=== PATIENT | female | born 1970 | race Caucasian/White ===

== ENCOUNTER → 2019-03-26 | Outpatient (CLI) | payer BC ==
--- NOTE | 2019-03-27 10:51 | MM ---
Reason for exam: screening (asymptomatic). Last mammogram was performed 3 years and 1 month ago. History: Patient is nulliparous. Taking hormonal contraceptives beginning at age 18. Physical Findings: A clinical breast exam by your physician is recommended on an annual basis and results should be correlated with mammographic findings. MG 3D Screening Mammo W/Cad Bilateral CC and MLO view(s) were taken. Prior study comparison: March 09, 2016, bilateral MG screening mammo w CAD. February 18, 2014, bilateral MG screening mammo w CAD. The breast tissue is heterogeneously dense. This may lower the sensitivity of mammography. No significant changes when compared with prior studies. ASSESSMENT: Negative, BI-RAD 1 RECOMMENDATION: Routine screening mammogram of both breasts in 1 year.
== END | disposition home or self-care (01) ==
LOC: RADMAMWWP 11:12
PROVIDERS: ATTEND Obstetrics & Gynecology
DX: Z12.31 Encounter for screening mammogram for malignant neoplasm of breast (principal)
CPT/HCPCS: 77063; 77067

== ENCOUNTER → 2020-03-30 | Outpatient (CLI) | payer BC ==
[2020-03-30 15:42] LABS: Basophils # (A) 0.1 k/uL (0-0.2); Basophils % (A) 1 %; Eosinophils # (A) 0.1 k/uL (0-0.7); Eosinophils % (A) 1 %; HCT 44.9 % (34.0-46.0); HGB 14.4 gm/dL (11.4-16.0); Lymphocytes # (A) 1.7 k/uL (1.0-4.8); Lymphocytes % (A) 32 %; MCH 30.7 pg (25.0-35.0); Mean Platelet Volume 7.9; Monocytes # (A) 0.3 k/uL (0-1.0); Monocytes % (A) 6 %; Neutrophils # (A) 3.1 k/uL (1.3-7.7); Neutrophils % (A) 57 %; Platelet Count 300 k/uL (150-450); RBC 4.68 m/uL (3.80-5.40); RDW 13.5 % (11.5-15.5); WBC 5.4 k/uL (3.8-10.6)
[2020-03-31 00:04] LABS: African American GFR (CKD) 88.2 (60.0-200.0); Albumin 4.2 g/dL (3.80-4.90); Albumin/Globulin Ratio 1.83 (1.60-3.17); Anion Gap 4.8 mmol/L (4.00-12.00); BUN/Creat Ratio 14.44 Ratio (12.00-20.00); Calcium 9.1 mg/dL (8.7-10.3); Carbon Dioxide 28.2 mmol/L (21.6-31.8); Globulin 2.3 g/dL (1.6-3.3); Non-African American GFR(CKD) 76.1 (60.0-200.0); Potassium 4.4 mmol/L (3.5-5.5); Total Bilirubin 0.3 mg/dL (0.3-1.2); Total Protein 6.5 g/dL (6.2-8.2)
[2020-03-31 01:06] LABS: Hemoglobin A1C 6.3 % (4.0-6.0)
== END | disposition home or self-care (01) ==
LOC: LABWHC1 14:45
PROVIDERS: ATTEND Physician Assistant
DX: R22.31 Localized swelling, mass and lump, right upper limb (principal); F41.9 Anxiety disorder, unspecified; E11.9 Type 2 diabetes mellitus without complications; R53.83 Other fatigue
CPT/HCPCS: 36415; 80053; 83036; 84439; 84443; 84481; 85025

== ENCOUNTER 2020-05-20 08:52 | Observation (INO) | payer BC ==
[2020-05-20] MEDS ORDERED: HYDROmorphone 0.5 MG/0.5 ML SYRINGE IVP STA (09:21)
[2020-05-20] MEDS ORDERED: SODIUM CHLORIDE 0.9% 500 ML 500 ML IV STA (09:21)
[2020-05-20] MEDS ORDERED: SODIUM CHLORIDE 0.9% 1,000 ML IV ONE (09:24)
--- NOTE | 2020-05-20 09:24 | ED ---
General Adult HPI - General Chief complaint: Abdominal Pain Stated complaint: abd pain Time Seen by Provider: 05/20/20 09:06 Source: patient, RN notes reviewed, old records reviewed Mode of arrival: wheelchair Limitations: no limitations - History of Present Illness Initial comments: 49-year-old female patient presents to the chief complaint of 3 days of periumbilical suprapubic abdominal pain diarrhea patient reports that her stools were initially Blake and now they've become reportedly black and loose. Patient reports that she does have a history of appendectomy. Denies any other acute complaints. Systemic: Pt denies fatigue, fever/chills, rash. Pt denies weakness, night sweats, weight loss. Neuro: Pt denies headache, visual disturbances, syncope or pre-syncope. HEENT: Pt denies ocular discharge or irritation, otalgia, rhinorrhea, pharyngitis or notable lymphadenopathy. Cardiopulmonary: Pt denies chest pain, SOB, heart palpitations, dyspnea on exertion. : Pt denies dysuria, burning w/ urination, frequency/urgency. Denies new onset urinary or bowel incontinence. MSK: Pt denies myalgia, loss of strength or function in extremities. Neuro: Pt denies new onset weakness, paresthesias. - Related Data Home Medications Medication Instructions Recorded Confirmed Montelukast [Singulair] 10 mg PO HS 05/20/14 05/20/20 cloNIDine HCL [Catapres] 0.2 mg PO HS 04/09/16 05/20/20 metFORMIN HCL [Glucophage] 500 mg PO HS 04/09/16 05/20/20 Dextroamphetamine/Amphetamine 30 mg PO BID 05/20/20 05/20/20 [Adderall] Diclofenac Sodium [Voltaren] 75 mg PO BID 05/20/20 05/20/20 Ergocalciferol [Vitamin D2] 50,000 unit PO TU 05/20/20 05/20/20 Fexofenadine HCl [Arielle Allergy] 180 mg PO DAILY 05/20/20 05/20/20 Levonorgestrel-Ethin Estradiol 1 tab PO DAILY 05/20/20 05/20/20 [Levora-28 Tablet] SUMAtriptan succinate [Imitrex] 25 mg PO DAILY PRN 05/20/20 05/20/20 clonazePAM [KlonoPIN] 1 - 2 mg PO TID PRN 05/20/20 05/20/20 tiZANidine [Zanaflex] 4 mg PO BID PRN 05/20/20 05/20/20 traZODone HCL 150 - 300 mg PO HS PRN 05/20/20 05/20/20 Allergies Allergy/AdvReac Type Severity Reaction Status Date / Time neomycin [Neomycin] Allergy Severe Rash/Hives Verified 05/20/20 10:14 codeine AdvReac Severe Itching Verified 05/20/20 10:14 hydrocodone AdvReac Intermediate Itching Verified 05/20/20 10:14 morphine AdvReac Intermediate Itching Verified 05/20/20 10:14 Review of Systems ROS Statement: Those systems with pertinent positive or pertinent negative responses have been documented in the HPI. ROS Other: All systems not noted in ROS Statement are negative. Past Medical History Past Medical History: Respiratory Disorder Additional Past Medical History / Comment(s): Yr round severe seasonal allergies. Multiple UTI's, bronchitis History of Any Multi-Drug Resistant Organisms: None Reported Past Surgical History: Appendectomy, Hernia Repair, Orthopedic Surgery Additional Past Surgical History / Comment(s): Rt foot reconstructive surgery 2010. Lt inguinal hernia. Exploratory lap. Corrective Eye surgery bilateral 2006, Past Anesthesia/Blood Transfusion Reactions: Previous Problems w/ Anesthesia, Motion Sickness, Postoperative Nausea & Vomiting (PONV) Additional Past Anesthesia/Blood Transfusion Reaction / Comment(s): Succinylcholine - prolonged muscle paralysis Past Psychological History: Anxiety Smoking Status: Current every day smoker Past Alcohol Use History: Occasional Past Drug Use History: None Reported General Exam - General Exam Comments Initial Comments: Constitutional: NAD, AOX3, Pt has pleasant affect. HEENT: NC/AT, trachea midline, neck supple, no lymphadenopathy. Posterior pharynx non erythematous, without exudates. External ears appear normal, without discharge. Mucous membranes moist. Eyes PERRLA, EOM intact. There is no scleral icterus. No pallor noted. Cardiopulmonary: RRR, no murmurs, rubs or gallops, no JVD noted. Lungs CTAB in anterior and posterior keith. No peripheral edema. Abdominal exam: Abdomen soft and non-distended. Abdomen tender to palpation suprapubic and periumbilical region. Bowel sounds active in LLQ. No hepatosplenomegaly. No ecchymosis Neuro: CN II-XII grossly intact. No nuchal rigidity. MSK: No posterior calf tenderness bilaterally, homans sign negative bilaterally. Posterior tibialis and radial pulse +2 bilaterally. Sensation intact in upper and lower extremities. Full active ROM in upper and lower extremities. Limitations: no limitations Course Vital Signs 05/20/20 05/20/20 08:53 11:22 Temperature 97.7 F Pulse Rate 70 66 Respiratory 16 16 Rate Blood Pressure 119/66 108/67 O2 Sat by Pulse 99 97 Oximetry Procedures - Sepsis Sepsis Focused Exam #1 Time Sepsis Criteria Met: 10:24 Peripheral Pulses: Normal: Radial (R), Radial (L), Posterior Tibialis (R), Posterior Tibialis (L), Dorsalis Pedis (R), Dorsalis Pedis (L) Skin Color: Normal for Patient Respiratory Exam: normal lung sounds Cardiovascular Exam: regular rate, normal rhythm Medical Decision Making - Medical Decision Making 48-year-old female patient with chief evaluation abdominal pain, dark stools, diarrhea. Patient vital signs are stable, afebrile. Skull examined displays mild abdominal tenderness. Laboratory investigations revealed leukocytosis of 18.4. Lactic acid is 5.3. UA reveals nitrite positive urine occult blood positive CT abdomen and pelvis displayed while thickening involving the splenic flexure felt to reflect nonspecific. Moderate fecal stasis. Patient declining any concern for STI's. Patient administered 2 L IV fluids, 1 g Rocephin. Protonix. Patient will be admitted for GI bleed possible urinary tract infection . Case discussed with Dr. Morgan. - Lab Data Result diagrams: 05/20/20 09:05/20/20 09: Lab Results 05/20/20 05/20/20 05/20/20 Range/Units 09: 09: 09: WBC 18.4 H (3.8-10.6) k/uL RBC 5.35 (3.80-5.40) m/uL Hgb 15.8 (11.4-16.0) gm/dL Hct 49.0 H (34.0-46.0) % MCV 91.6 (80.0-100.0) fL MCH 29.5 (25.0-35.0) pg MCHC 32.2 (31.0-37.0) g/dL RDW 13.5 (11.5-15.5) % Plt Count 370 (150-450) k/uL Neutrophils % 80 % Lymphocytes % 13 % Monocytes % 5 % Eosinophils % 1 % Basophils % 0 % Neutrophils # 14.6 H (1.3-7.7) k/uL Lymphocytes # 2.3 (1.0-4.8) k/uL Monocytes # 0.9 (0-1.0) k/uL Eosinophils # 0.2 (0-0.7) k/uL Basophils # 0.1 (0-0.2) k/uL Sodium (137-145) mmol/L Potassium (3.5-5.1) mmol/L Chloride (98-107) mmol/L Carbon Dioxide (22-30) mmol/L Anion Gap mmol/L BUN (7-17) mg/dL Creatinine (0.52-1.04) mg/dL Est GFR (CKD-EPI)AfAm (>60 ml/min/1.73 sqM) Est GFR (CKD-EPI)NonAf (>60 ml/min/1.73 sqM) Glucose (74-99) mg/dL Plasma Lactic Acid Jimmie (0.7-2.0) mmol/L Calcium (8.4-10.2) mg/dL Total Bilirubin (0.2-1.3) mg/dL AST (14-36) U/L ALT (4-34) U/L Alkaline Phosphatase (38-126) U/L Total Protein (6.3-8.2) g/dL Albumin (3.5-5.0) g/dL Lipase (23-300) U/L Urine Color Red Urine Appearance Cloudy H (Clear) Urine pH 5.5 (5.0-8.0) Ur Specific [place] 1.029 (1.001-1.035) Urine Protein Trace H (Negative) Urine Glucose (UA) Negative (Negative) Urine Ketones 1+ H (Negative) Urine Blood Small H (Negative) Urine Nitrite Positive H (Negative) Urine Bilirubin 1+ H (Negative) Urine Urobilinogen 3.0 (<2.0) mg/dL Ur Leukocyte Esterase Small H (Negative) Urine RBC 6 H (0-5) /hpf Urine WBC 1 (0-5) /hpf Ur Squamous Epith Cells 3 (0-4) /hpf Calcium Oxalate Crystal Many H (None) /hpf Urine Bacteria Rare H (None) /hpf Urine Mucus Rare H (None) /hpf Urine HCG, Qual Not Detected (Not Detectd) Stool Occult Blood (Negative) 05/20/20 05/20/20 05/20/20 Range/Units 09:27 09:27 09:44 WBC (3.8-10.6) k/uL RBC (3.80-5.40) m/uL Hgb (11.4-16.0) gm/dL Hct (34.0-46.0) % MCV (80.0-100.0) fL MCH (25.0-35.0) pg MCHC (31.0-37.0) g/dL RDW (11.5-15.5) % Plt Count (150-450) k/uL Neutrophils % % Lymphocytes % % Monocytes % % Eosinophils % % Basophils % % Neutrophils # (1.3-7.7) k/uL Lymphocytes # (1.0-4.8) k/uL Monocytes # (0-1.0) k/uL Eosinophils # (0-0.7) k/uL Basophils # (0-0.2) k/uL Sodium 133 L (137-145) mmol/L Potassium 4.7 (3.5-5.1) mmol/L Chloride 104 (98-107) mmol/L Carbon Dioxide 16 L (22-30) mmol/L Anion Gap 13 mmol/L BUN 21 H (7-17) mg/dL Creatinine 0.98 (0.52-1.04) mg/dL Est GFR (CKD-EPI)AfAm 79 (>60 ml/min/1.73 sqM) Est GFR (CKD-EPI)NonAf 69 (>60 ml/min/1.73 sqM) Glucose 130 H (74-99) mg/dL Plasma Lactic Acid Jimmie 5.3 H* (0.7-2.0) mmol/L Calcium 9.8 (8.4-10.2) mg/dL Total Bilirubin 0.4 (0.2-1.3) mg/dL AST 29 (14-36) U/L ALT 25 (4-34) U/L Alkaline Phosphatase 99 (38-126) U/L Total Protein 7.6 (6.3-8.2) g/dL Albumin 4.5 (3.5-5.0) g/dL Lipase 124 (23-300) U/L Urine Color Urine Appearance (Clear) Urine pH (5.0-8.0) Ur Specific [place] (1.001-1.035) Urine Protein (Negative) Urine Glucose (UA) (Negative) Urine Ketones (Negative) Urine Blood (Negative) Urine Nitrite (Negative) Urine Bilirubin (Negative) Urine Urobilinogen (<2.0) mg/dL Ur Leukocyte Esterase (Negative) Urine RBC (0-5) /hpf Urine WBC (0-5) /hpf Ur Squamous Epith Cells (0-4) /hpf Calcium Oxalate Crystal (None) /hpf Urine Bacteria (None) /hpf Urine Mucus (None) /hpf Urine HCG, Qual (Not Detectd) Stool Occult Blood Positive H (Negative) Disposition Clinical Impression: GI bleed, UTI (urinary tract infection) Disposition: ADMITTED IP TO THIS [facility] Condition: Serious Is patient prescribed a controlled substance at d/c from ED?: No Referrals: Nita Belle MD [Primary Care Provider] - 1-2 days
[2020-05-20 10:01] LABS: Basophils # (A) 0.1 k/uL (0-0.2); Basophils % (A) 0 %; Eosinophils # (A) 0.2 k/uL (0-0.7); Eosinophils % (A) 1 %; HGB 15.8 gm/dL (11.4-16.0); Lymphocytes # (A) 2.3 k/uL (1.0-4.8); Lymphocytes % (A) 13 %; MCH 29.5 pg (25.0-35.0); MCHC 32.2 g/dL (31.0-37.0); MCV 91.6 fL (80.0-100.0); Mean Platelet Volume 7.7; Monocytes # (A) 0.9 k/uL (0-1.0); Monocytes % (A) 5 %; Neutrophils # (A) 14.6 k/uL (1.3-7.7); Neutrophils % (A) 80 %; Platelet Count 370 k/uL (150-450); RBC 5.35 m/uL (3.80-5.40); RDW 13.5 % (11.5-15.5); WBC 18.4 k/uL (3.8-10.6)
[2020-05-20 10:14] LABS: Albumin 4.5 g/dL (3.5-5.0); Calcium 9.8 mg/dL (8.4-10.2); Potassium 4.7 mmol/L (3.5-5.1); Total Bilirubin 0.4 mg/dL (0.2-1.3); Total Protein 7.6 g/dL (6.3-8.2)
[2020-05-20] MEDS ORDERED: SODIUM CHLORIDE 0.9% 500 ML 500 ML IV ONE (10:20)
[2020-05-20 10:22] LABS: Appearance,Urine Cloudy (Clear); Bacteria,Urine Rare /hpf; Bilirubin,Urine 1+ (Negative); Blood,Urine Small (Negative); Calcium Oxalate Crystals,Urine Many /hpf; Color,Urine Red; Glucose,Urine (UA) Negative (Negative); Ketones,Urine 1+ (Negative); Leukocyte Esterase,Urine Small (Negative); Mucus,Urine Rare /hpf; Nitrite,Urine Positive (Negative); PH, Urine 5.5 (5.0-8.0); Protein,Urine Trace (Negative); RBC,Urine 6 /hpf (0-5); Specific Gravity,Urine 1.029 (1.001-1.035); Squamous Epithelial Cell,Urine 3 /hpf (0-4); WBC,Urine 1 /hpf (0-5)
[2020-05-20] MEDS ORDERED: PANTOPRAZOLE 40 MG/10 ML VIAL IVP ONE (10:44)
--- NOTE | 2020-05-20 10:56 | CT ---
EXAMINATION TYPE: CT abdomen pelvis w con DATE OF EXAM: 05/20/2020 COMPARISON: 08/08/2013 HISTORY: Pelvic pain with black stools CT DLP: 639.3 mGycm CONTRAST: CT scan of the abdomen and pelvis is performed without Oral Contrast and with IV Contrast, patient in jected with 100 mL of Isovue 300. FINDINGS: LUNG BASES-: No visible nodule. No infiltrate. LIVER/GB: No calcified gallstones. There is a simple cyst then noted near the dome of the liver dell suring 1.4 cm. Biliary tree is of normal caliber. PANCREAS: No inflammation. No distinct mass. SPLEEN: No splenic enlargement. No lesion seen. ADRENALS: No nodule. No thickening. KIDNEYS/BLADDER: No hydronephrosis. No nephrolithiasis. No distinct renal mass. Urinary bladder g rossly unremarkable. BOWEL: The appendix is surgically absent. There is wall thickening involving the splenic flexure felt to reflect nonspecific. There is moderate fecal stasis. No free air or abscess. GENITAL ORGANS: Hypoattenuating lesions of the uterus are suspicious for underlying leiomyomatous ch yarely. LYMPH NODES: No greater than 1cm abdominal or pelvic lymph nodes are appreciated. AORTA: No significant abnormality. OSSEOUS STRUCTURES: No significant abnormality is seen. OTHER: No significant additional abnormality is seen. IMPRESSION: 1. There is wall thickening involving the splenic flexure felt to reflect nonspecific. There is moder ate fecal stasis.
[2020-05-20] MEDS ORDERED: NALOXONE 0.4 MG/ML 1 ML VIAL IV PRN (11:15)
[2020-05-20] MEDS: SODIUM CHLORIDE 0.9% 1,000 ML IV SCH ×2 (11:52→20:25)
[2020-05-20] MEDS: HYDROmorphone 0.5 MG/0.5 ML SYRINGE IVP PRN ×2 (13:36→20:24)
[2020-05-20] MEDS ORDERED: traZODone HCL 50 MG TAB PO PRN (16:43)
[2020-05-20] MEDS ORDERED: SUMAtriptan succinate 25 MG TAB PO PRN (16:43)
[2020-05-20] MEDS ORDERED: tiZANidine 4 MG TAB PO PRN (16:43)
[2020-05-20] MEDS ORDERED: diphenhydrAMINE 25 MG CAP PO STA (17:56)
[2020-05-20] MEDS ORDERED: metFORMIN 500 MG TAB PO SCH (21:00)
[2020-05-20] MEDS ORDERED: MONTELUKAST 10 MG TAB PO SCH (21:00)
--- NOTE | 2020-05-20 21:49 | P.HPIM ---
History of Present Illness This is a pleasant 49 years old female with multiple medical problems as below. Patient presents because of diarrhea and abdominal pain. Patient problems started last night when she has loose stool with Dr. Blake in color associated with some blood as per patient associated with lower abdominal pain below the umbilicus more on the right side felt like a crampy moderate to severe in characterOn discharge, the patient has been prescribed and patient vomited one time in the middle of night. Patient could not states, he bowel movement she had however she said it was many bouts in 6 hours however they slowed down now. Patient denies chest pain or dyspnea. Also patient denies any dysuria, no increased frequency or urgency. Hemodynamically stable and patient is afebrile. Labs showed leukocytosis of 18.4 K. Mild hyponatremia with sodium 133, rest of CBC and BMP are unremarkable. High lactic acid 5.3 came back to normal at 1.3, liver enzymes and troponin are normal. Urine analysis showing cloudy with WBC and increased leukocyte esterase EKG showing sinus bradycardia at [address]-T changes. CT of the abdomen and pelvis: Showing there is wall thickening involving the splenic flexure felt to reflect nonspecific and there is moderate fecal stasis Occult blood test was positive however hemoglobin is stable at 15. Review of Systems CONSTITUTIONAL: No fever, no malaise, no fatigue. HEENT: No recent visual problems or hearing problems. Denied any sore throat. CARDIOVASCULAR: No orthopnea, PND, no palpitations, no syncope. PULMONARY: No shortness of breath, no cough, no hemoptysis. GASTROINTESTINAL: . Normoactive bowel sounds. NEUROLOGICAL: No headaches, no weakness, no numbness. HEMATOLOGICAL: Denies any bleeding or petechiae. GENITOURINARY: Denies any burning micturition, frequency, or urgency. MUSCULOSKELETAL/RHEUMATOLOGICAL: Denies any joint pain, swelling, or any muscle pain. ENDOCRINE: Denies any polyuria or polydipsia. Past Medical History Past Medical History: Respiratory Disorder Additional Past Medical History / Comment(s): Yr round severe seasonal allergies. Multiple UTI's, bronchitis History of Any Multi-Drug Resistant Organisms: None Reported Past Surgical History: Appendectomy, Hernia Repair, Orthopedic Surgery Additional Past Surgical History / Comment(s): Rt foot reconstructive surgery 2010. Lt inguinal hernia. Exploratory lap. Corrective Eye surgery bilateral 2006, Past Anesthesia/Blood Transfusion Reactions: Previous Problems w/ Anesthesia, Motion Sickness, Postoperative Nausea & Vomiting (PONV) Additional Past Anesthesia/Blood Transfusion Reaction / Comment(s): Succinylcholine - prolonged muscle paralysis Past Psychological History: Anxiety Smoking Status: Current every day smoker Past Alcohol Use History: Occasional Past Drug Use History: None Reported - Past Family History Father Family Medical History: Cancer Mother Family Medical History: Asthma Medications and Allergies Home Medications Medication Instructions Recorded Confirmed Type Montelukast [Singulair] 10 mg PO HS 05/20/14 05/20/20 History cloNIDine HCL [Catapres] 0.2 mg PO HS 04/09/16 05/20/20 History metFORMIN HCL [Glucophage] 500 mg PO HS 04/09/16 05/20/20 History Dextroamphetamine/Amphetamine 30 mg PO BID 05/20/20 05/20/20 History [Adderall] Diclofenac Sodium [Voltaren] 75 mg PO BID 05/20/20 05/20/20 History Ergocalciferol [Vitamin D2] 50,000 unit PO TU 05/20/20 05/20/20 History Fexofenadine HCl [Arielle Allergy] 180 mg PO DAILY 05/20/20 05/20/20 History Levonorgestrel-Ethin Estradiol 1 tab PO DAILY 05/20/20 05/20/20 History [Levora-28 Tablet] SUMAtriptan succinate [Imitrex] 25 mg PO DAILY PRN 05/20/20 05/20/20 History clonazePAM [KlonoPIN] 1 - 2 mg PO TID PRN 05/20/20 05/20/20 History tiZANidine [Zanaflex] 4 mg PO BID PRN 05/20/20 05/20/20 History traZODone HCL 150 - 300 mg PO HS PRN 05/20/20 05/20/20 History Allergies Allergy/AdvReac Type Severity Reaction Status Date / Time neomycin [Neomycin] Allergy Severe Rash/Hives Verified 05/20/20 10:14 codeine AdvReac Severe Itching Verified 05/20/20 10:14 hydrocodone AdvReac Intermediate Itching Verified 05/20/20 10:14 morphine AdvReac Intermediate Itching Verified 05/20/20 10:14 Physical Exam Vitals: Vital Signs Temp Pulse Pulse Resp BP BP Pulse Ox 05/20/20 13:38 67 21 108/78 100 05/20/20 12:57 68 17 100/66 100 05/20/20 12:54 98.4 F 80 20 102/74 98 05/20/20 11:22 66 16 108/67 97 05/20/20 08:53 97.7 F 70 16 119/66 99 Intake and Output 05/20/20 05/20/20 05/20/20 06:59 14:59 22:59 Intake Total 240 240 Output Total 200 Balance 240 40 Intake: Oral 240 240 Output: Urine 200 Other: Weight 66.678 kg GENERAL: The patient is alert and oriented x3, not in any acute distress. Well developed, well nourished. HEENT: Pupils are round and equally reacting to light. EOMI. No scleral icterus. No conjunctival pallor. Normocephalic, atraumatic. No pharyngeal erythema. No thyromegaly. CARDIOVASCULAR: S1 and S2 present. No murmurs, rubs, or gallops. PULMONARY: Chest is clear to auscultation, no wheezing or crackles. -ABDOMEN: Soft, mild periumbilical and upper tenderness, nondistended, normoac tive bowel sounds. No palpable organomegaly. MUSCULOSKELETAL: No joint swelling or deformity. EXTREMITIES: No cyanosis, clubbing, or pedal edema. NEUROLOGICAL: Gross neurological examination did not reveal any focal deficits. SKIN: No rashes. No petechiae Results CBC & Chem 7: 05/20/20 09:27 05/20/20 09:27 Labs: Abnormal Lab Results - Last 24 Hours (Table) 05/20/20 05/20/20 05/20/20 Range/Units 09:27 09: 09:27 WBC 18.4 H (3.8-10.6) k/uL Hct 49.0 H (34.0-46.0) % Neutrophils # 14.6 H (1.3-7.7) k/uL Sodium 133 L (137-145) mmol/L Carbon Dioxide 16 L (22-30) mmol/L BUN 21 H (7-17) mg/dL Glucose 130 H (74-99) mg/dL Plasma Lactic Acid Jimmie (0.7-2.0) mmol/L Urine Appearance Cloudy H (Clear) Urine Protein Trace H (Negative) Urine Ketones 1+ H (Negative) Urine Blood Small H (Negative) Urine Nitrite Positive H (Negative) Urine Bilirubin 1+ H (Negative) Ur Leukocyte Esterase Small H (Negative) Urine RBC 6 H (0-5) /hpf Calcium Oxalate Crystal Many H (None) /hpf Urine Bacteria Rare H (None) /hpf Urine Mucus Rare H (None) /hpf Stool Occult Blood (Negative) 05/20/20 05/20/20 Range/Units 09:27 09:44 WBC (3.8-10.6) k/uL Hct (34.0-46.0) % Neutrophils # (1.3-7.7) k/uL Sodium (137-145) mmol/L Carbon Dioxide (22-30) mmol/L BUN (7-17) mg/dL Glucose (74-99) mg/dL Plasma Lactic Acid Jimmie 5.3 H* (0.7-2.0) mmol/L Urine Appearance (Clear) Urine Protein (Negative) Urine Ketones (Negative) Urine Blood (Negative) Urine Nitrite (Negative) Urine Bilirubin (Negative) Ur Leukocyte Esterase (Negative) Urine RBC (0-5) /hpf Calcium Oxalate Crystal (None) /hpf Urine Bacteria (None) /hpf Urine Mucus (None) /hpf Stool Occult Blood Positive H (Negative) Microbiology - Last 24 Hours (Table) 05/20/20 09:44 Stool Culture - Preliminary Stool Thrombosis Risk Factor Assmnt - Choose All That Apply Each Factor Represents 1 point: Age 41-60 years Thrombosis Risk Factor Assessment Total Risk Factor Score: 1 Thrombosis Risk Factor Assessment Level: Low Risk Assessment and Plan Assessment: Gastroenteritis with possible GI bleed Asymptomatic bacteriuria This is a blind of the right side and she follow up with cup setter lockstitch as an outpatient Plan: This is a pleasant 49 years old female who presents with colitis and gastroenteritis. Sent for stool studies including C. diff, stool culture and leukocyte. Start the patient on ceftriaxone and Flagyl. GI consult. IV hydration. Labs and medication were reviewed.. Continue same treatment. Continue with symptomatic treatment. Resume home medication. Monitor lytes and vitals. DVT and GI prophylaxis. Further recommendations of the clinical course of the patient DVT prophylaxis: Subcutaneous heparin GI Prophylaxis: Pepcid
[2020-05-21] MEDS ORDERED: diphenhydrAMINE 25 MG CAP PO STA (01:10)
[2020-05-21] MEDS: metroNIDAZOLE-NS PMX 500 MG in SALINE 1 100ML.BAG IVPB SCH ×2 (01:17→09:59)
[2020-05-21] MEDS: clonazePAM 1 MG TAB PO PRN ×2 (01:31→08:27)
[2020-05-21 01:45] LABS: Glucose,Whole Blood 71 mg/dL (75-99)
[2020-05-21 01:59] LABS: Glucose,Whole Blood 92 mg/dL (75-99)
[2020-05-21 02:09] LABS: Basophils # (A) 0.1 k/uL (0-0.2); Basophils % (A) 1 %; Eosinophils # (A) 0.2 k/uL (0-0.7); Eosinophils % (A) 2 %; HCT 42.5 % (34.0-46.0); HGB 13.7 gm/dL (11.4-16.0); Lymphocytes # (A) 3.9 k/uL (1.0-4.8); Lymphocytes % (A) 39 %; MCH 29.6 pg (25.0-35.0); MCHC 32.3 g/dL (31.0-37.0); MCV 91.7 fL (80.0-100.0); Mean Platelet Volume 7.7; Monocytes # (A) 0.5 k/uL (0-1.0); Monocytes % (A) 5 %; Neutrophils # (A) 5.1 k/uL (1.3-7.7); Neutrophils % (A) 51 %; Platelet Count 288 k/uL (150-450); RBC 4.63 m/uL (3.80-5.40); RDW 13.7 % (11.5-15.5); WBC 9.9 k/uL (3.8-10.6)
[2020-05-21 02:17] LABS: African American GFR (CKD) >90 (>60 ml/min/1.73 sqM); Anion Gap 9 mmol/L; Blood Urea Nitrogen 12 mg/dL (7-17); Calcium 8.7 mg/dL (8.4-10.2); Carbon Dioxide 16 mmol/L (22-30); Chloride 108 mmol/L (98-107); Glucose 126 mg/dL (74-99); Non-African American GFR(CKD) 83 (>60 ml/min/1.73 sqM); Potassium 4.3 mmol/L (3.5-5.1); Sodium 133 mmol/L (137-145)
[2020-05-21] MEDS: SODIUM CHLORIDE 0.9% 1,000 ML IV SCH (03:33)
[2020-05-21 05:52] LABS: Basophils # (A) 0.1 k/uL (0-0.2); Basophils % (A) 1 %; Eosinophils # (A) 0.1 k/uL (0-0.7); Eosinophils % (A) 2 %; HGB 12.2 gm/dL (11.4-16.0); Lymphocytes # (A) 2.2 k/uL (1.0-4.8); Lymphocytes % (A) 31 %; MCH 29.8 pg (25.0-35.0); MCHC 32.1 g/dL (31.0-37.0); MCV 92.8 fL (80.0-100.0); Mean Platelet Volume 7.7; Monocytes # (A) 0.4 k/uL (0-1.0); Monocytes % (A) 5 %; Neutrophils # (A) 4.2 k/uL (1.3-7.7); Neutrophils % (A) 59 %; Platelet Count 268 k/uL (150-450); RBC 4.09 m/uL (3.80-5.40); RDW 13.8 % (11.5-15.5); WBC 7.2 k/uL (3.8-10.6)
[2020-05-21 06:03] LABS: African American GFR (CKD) >90 (>60 ml/min/1.73 sqM); Anion Gap 5 mmol/L; Blood Urea Nitrogen 11 mg/dL (7-17); Calcium 7.9 mg/dL (8.4-10.2); Carbon Dioxide 22 mmol/L (22-30); Chloride 109 mmol/L (98-107); Glucose 110 mg/dL (74-99); Non-African American GFR(CKD) >90 (>60 ml/min/1.73 sqM); Potassium 3.7 mmol/L (3.5-5.1); Sodium 136 mmol/L (137-145)
[2020-05-21 08:07] VITALS: BP 143/79; PULSE 89; RESP 35; TEMP 98.4
--- NOTE | 2020-05-21 10:54 | P.DS ---
Providers Date of admission: 05/20/20 11:15 Attending physician: Jaxon Macias Consults: 05/20/20 11:15 Consult Physician Stat Consulting Provider: Geoffrey Blount Consult Reason/Comments: gi bleed Do you want consulting provider notified?: Yes Primary care physician: Ysohi Moya [facility] Course: Left AMA Patient Condition at Discharge: Serious Plan - Discharge Summary Discharge Rx Participant: No New Discharge Prescriptions: No Action Montelukast [Singulair] 10 mg PO HS metFORMIN HCL [Glucophage] 500 mg PO HS cloNIDine HCL [Catapres] 0.2 mg PO HS Fexofenadine HCl [Arielle Allergy] 180 mg PO DAILY traZODone HCL 150 - 300 mg PO HS PRN PRN Reason: Insomnia tiZANidine [Zanaflex] 4 mg PO BID PRN PRN Reason: Spasms Ergocalciferol [Vitamin D2] 50,000 unit PO TU Levonorgestrel-Ethin Estradiol [Levora-28 Tablet] 1 tab PO DAILY Diclofenac Sodium [Voltaren] 75 mg PO BID Dextroamphetamine/Amphetamine [Adderall] 30 mg PO BID clonazePAM [KlonoPIN] 1 - 2 mg PO TID PRN PRN Reason: Anxiety SUMAtriptan succinate [Imitrex] 25 mg PO DAILY PRN PRN Reason: Migraine Headache Discharge Medication List Montelukast [Singulair] 10 mg PO HS 05/20/14 [History] cloNIDine HCL [Catapres] 0.2 mg PO HS 04/09/16 [History] metFORMIN HCL [Glucophage] 500 mg PO HS 04/09/16 [History] Dextroamphetamine/Amphetamine [Adderall] 30 mg PO BID 05/20/20 [History] Diclofenac Sodium [Voltaren] 75 mg PO BID 05/20/20 [History] Ergocalciferol [Vitamin D2] 50,000 unit PO TU 05/20/20 [History] Fexofenadine HCl [Arielle Allergy] 180 mg PO DAILY 05/20/20 [History] Levonorgestrel-Ethin Estradiol [Levora-28 Tablet] 1 tab PO DAILY 05/20/20 [History] SUMAtriptan succinate [Imitrex] 25 mg PO DAILY PRN 05/20/20 [History] clonazePAM [KlonoPIN] 1 - 2 mg PO TID PRN 05/20/20 [History] tiZANidine [Zanaflex] 4 mg PO BID PRN 05/20/20 [History] traZODone HCL 150 - 300 mg PO HS PRN 05/20/20 [History] Follow up Appointment(s)/Referral(s): Nita Belle MD [Primary Care Provider] - 1-2 days Discharge Disposition: Left Against Medical Advice
== END 2020-05-21 10:44 | disposition left against medical advice (07) ==
LOC: EC 08:52 → INTOOBSV 11:15 → 3SCARD 11:15 → UNDODISIN 05-21 10:44
PROVIDERS: ADMIT Internal Medicine; ATTEND Internal Medicine
DX: K52.9 Noninfective gastroenteritis and colitis, unspecified (principal); R82.71 Bacteriuria; H54.61 Unqualified visual loss, right eye, normal vision left eye; Z53.29 Procedure and treatment not carried out because of patient's decision for other reasons; E87.1 Hypo-osmolality and hyponatremia; R00.1 Bradycardia, unspecified; J30.2 Other seasonal allergic rhinitis; F41.9 Anxiety disorder, unspecified; F17.200 Nicotine dependence, unspecified, uncomplicated; Z90.49 Acquired absence of other specified parts of digestive tract; Z79.899 Other long term (current) drug therapy; Z79.84 Long term (current) use of oral hypoglycemic drugs; Z79.1 Long term (current) use of non-steroidal anti-inflammatories (NSAID); Z79.3 Long term (current) use of hormonal contraceptives; Z88.1 Allergy status to other antibiotic agents; Z88.5 Allergy status to narcotic agent; Z87.440 Personal history of urinary (tract) infections; Z87.09 Personal history of other diseases of the respiratory system; Z87.19 Personal history of other diseases of the digestive system; Z98.890 Other specified postprocedural states; Z91.89 Other specified personal risk factors, not elsewhere classified; Z87.898 Personal history of other specified conditions; Z80.9 Family history of malignant neoplasm, unspecified; Z82.5 Family history of asthma and other chronic lower respiratory diseases
CPT/HCPCS: 96376 ×2; 96365 ×2; 96367; 96361; 96375; 99285; 36415; 93005; 86900; 86901; 80053; 80048; 83605 ×2; 83690; 85025 ×2; 86850; 82272; 81001; 81025; 87040; 87086; 87045; 83630; 87046; 74177; G0378 ×2; J0696 ×2; C9113; J1170; Q9967

== ENCOUNTER → 2021-03-15 | Outpatient (CLI) | payer OTHER ==
--- NOTE | 2021-03-15 16:28 | US ---
EXAMINATION TYPE: US pelvic complete DATE OF EXAM: 03/15/2021 COMPARISON: NONE CLINICAL HISTORY: R10.2 Pelvic pain, D25.9 Fibroids. Right pelvic pain, irregular cycles, 0, patient on control TECHNIQUE: Transabdominal sonographic images of the pelvis were acquired. Date of LMP: 03/09/2021 EXAM MEASUREMENTS: Uterus: 7.5 x 3.0 x 3.7 cm Endometrial Stripe: 0.4 cm Right Ovary: 2.3 x 1.3 x 1.3 cm Left Ovary: 1.8 x 1.0 x 1.4 cm 1. Uterus: anteverted, 1.7 x 1.3 x 1.6cm hypoechoic area this is suggestive of a fibroid 2. Endometrium: wnl 3. Right Ovary: wnl tiny follicle. 4. Left Ovary: wnl 5. Bilateral Adnexa: wnl 6. Posterior cul-de-sac: wnl IMPRESSION: 1. 1.7 cm hypoechoic region within the right uterus is suggestive of a fibroid. 2. Endometrial stripe measures 4 mm, within normal limits. 3. Tiny follicle of the right ovary.
== END | disposition home or self-care (01) ==
LOC: RADUSWWP 15:39
PROVIDERS: ATTEND Obstetrics & Gynecology
DX: D25.9 Leiomyoma of uterus, unspecified (principal); R10.2 Pelvic and perineal pain; N92.6 Irregular menstruation, unspecified
CPT/HCPCS: 76856

== ENCOUNTER 2021-08-25 15:22 | Inpatient (IN) | payer MEDICAID, OTHER ==
--- NOTE | 2021-08-25 18:10 | ED ---
General Adult HPI - General Chief complaint: Psychiatric Symptoms Stated complaint: Suicidal Time Seen by Provider: 08/25/21 17:31 Source: patient, RN notes reviewed Mode of arrival: ambulatory Limitations: no limitations - History of Present Illness Initial comments: 50-year-old female with a past medical history of anxiety presents to the emergency room for a chief complaint of suicidal thoughts. Patient has had suicidal thoughts for the past 10 years but they are worsening. Patient states that over the past few weeks she has actively wanted to kill herself. She has a plan of jumping in front of a semi-at night so they will see her. She does not want to do anything that will not be successful. Patient states she doesn't know why she is here because she doesn't want to continue living anyway.Patient has no other complaints at this time including shortness of breath, chest pain, abdominal pain, nausea or vomiting, headache, or visual changes. - Related Data Home Medications Medication Instructions Recorded Confirmed Montelukast [Singulair] 10 mg PO HS 05/20/14 08/25/21 cloNIDine HCL [Catapres] 0.2 mg PO HS 04/09/16 08/25/21 Diclofenac Sodium [Voltaren] 75 mg PO BID 05/20/20 08/25/21 Ergocalciferol [Vitamin D2] 50,000 unit PO Q7D 05/20/20 08/25/21 tiZANidine [Zanaflex] 4 mg PO BID PRN 05/20/20 08/25/21 traZODone HCL 300 mg PO HS PRN 05/20/20 08/25/21 Alendronate Sodium [Fosamax] 70 mg PO Q7D 08/25/21 08/25/21 Ammonium Lactate Cream [Lac-Hydrin 1 applic TOPICAL BID PRN 08/25/21 08/25/21 12% Cream] Cetirizine HCl [Zyrtec] 10 mg PO HS 08/25/21 08/25/21 Cyanocobalamin (Vitamin B-12) 1,000 mcg PO DAILY 08/25/21 08/25/21 [Vitamin B-12] Levonorg-Eth Estradiol-Eth 1 tab PO DAILY 08/25/21 08/25/21 0.15-0.03-0.01 Multivitamins, Thera [Multivitamin 1 tab PO DAILY 08/25/21 08/25/21 (formulary)] SUMAtriptan succinate 100 mg PO DAILY PRN 08/25/21 08/25/21 Vilazodone HCl [Viibryd] 40 mg PO DAILY 08/25/21 08/25/21 cloNIDine HCL [Catapres] 0.1 mg PO HS 08/25/21 08/25/21 clonazePAM 0.5 mg PO BID PRN 08/25/21 08/25/21 metFORMIN HCL ER [Glucophage XR] 1,000 mg PO W/SUPPER 08/25/21 08/25/21 Allergies Allergy/AdvReac Type Severity Reaction Status Date / Time neomycin [Neomycin] Allergy Severe Rash/Hives Verified 08/25/21 18:29 codeine AdvReac Severe Itching Verified 08/25/21 18:29 hydrocodone AdvReac Intermediate Itching Verified 08/25/21 18:29 morphine AdvReac Intermediate Itching Verified 08/25/21 18:29 Review of Systems ROS Statement: Those systems with pertinent positive or pertinent negative responses have been documented in the HPI. ROS Other: All systems not noted in ROS Statement are negative. Past Medical History Past Medical History: Respiratory Disorder Additional Past Medical History / Comment(s): Yr round severe seasonal allergies. Multiple UTI's, bronchitis History of Any Multi-Drug Resistant Organisms: None Reported Past Surgical History: Appendectomy, Hernia Repair, Orthopedic Surgery Additional Past Surgical History / Comment(s): Rt foot reconstructive surgery 2010. Lt inguinal hernia. Exploratory lap. Corrective Eye surgery bilateral 2006, Past Anesthesia/Blood Transfusion Reactions: Previous Problems w/ Anesthesia, Motion Sickness, Postoperative Nausea & Vomiting (PONV) Additional Past Anesthesia/Blood Transfusion Reaction / Comment(s): Succinylcholine - prolonged muscle paralysis Past Psychological History: Anxiety Smoking Status: Current every day smoker Past Alcohol Use History: Occasional Past Drug Use History: None Reported - Past Family History Father Family Medical History: Cancer Mother Family Medical History: Asthma General Exam Limitations: no limitations General appearance: alert, anxious Head exam: Present: atraumatic Eye exam: Present: normal appearance, PERRL, EOMI. Absent: scleral icterus, conjunctival injection ENT exam: Present: normal exam, mucous membranes moist Neck exam: Present: normal inspection, full ROM. Absent: tenderness Respiratory exam: Present: normal lung sounds bilaterally. Absent: respiratory distress, wheezes Cardiovascular Exam: Present: regular rate, normal rhythm, normal heart sounds GI/Abdominal exam: Present: soft, normal bowel sounds. Absent: distended, tenderness Psychiatric exam: Present: anxious Course Vital Signs 08/25/21 17:19 Temperature 99.3 F Pulse Rate 101 H Respiratory 16 Rate Blood Pressure 162/107 O2 Sat by Pulse 97 Oximetry Medical Decision Making - Medical Decision Making pt evaluated by EPS, they are recommending inpatient placement. Patient is signing herself in. - Lab Data Lab Results 08/25/21 08/25/21 Range/Units 18:35 20:29 Urine Opiates Screen Not Detected (NotDetected) Ur Oxycodone Screen Not Detected (NotDetected) Urine Methadone Screen Not Detected (NotDetected) Ur Propoxyphene Screen Not Detected (NotDetected) Ur Barbiturates Screen Not Detected (NotDetected) U Tricyclic Antidepress Not Detected (NotDetected) Ur Phencyclidine Scrn Not Detected (NotDetected) Ur Amphetamines Screen Not Detected (NotDetected) U Methamphetamines Scrn Not Detected (NotDetected) U Benzodiazepines Scrn Not Detected (NotDetected) Urine Cocaine Screen Not Detected (NotDetected) U Marijuana (THC) Screen Not Detected (NotDetected) Coronavirus (PCR) Not Detected (Not Detectd) Disposition Clinical Impression: Suicidal ideation Disposition: TRANSFER TO PSYCH HOSP/UNIT Condition: Good Is patient prescribed a controlled substance at d/c from ED?: No Referrals: Nita Belle MD [Primary Care Provider] - 1-2 days Time of Disposition: 21:14
[2021-08-25 19:22] LABS: Amphetamine Screen,Urine Not Detected (NotDetected); Barbiturate Screen,Urine Not Detected (NotDetected); Benzodiazepines Screen,Urine Not Detected (NotDetected); Cocaine Screen,Urine Not Detected (NotDetected); Methadone Screen, Urine Not Detected (NotDetected); Opiate Screen,Urine Not Detected (NotDetected); Oxycodone Screen, Urine Not Detected (NotDetected); Phencyclidine Screen,Urine Not Detected (NotDetected); Tricyclic Antidepressant,Urine Not Detected (NotDetected); Urn Cannabinoid Scrn Not Detected (NotDetected)
[2021-08-25] MEDS ORDERED: MAGNESIUM HYDROXIDE 2,400 MG/10 ML CUP PO PRN (21:59)
[2021-08-25] MEDS ORDERED: ACETAMINOPHEN TAB 325 MG TAB PO PRN (21:59)
[2021-08-25] MEDS ORDERED: MAG HYDROX/AL HYDROX/SIMETH 30 ML CUP PO PRN (21:59)
[2021-08-25] MEDS ORDERED: HALOPERIDOL LACTATE 5 MG/ML 1 ML VIAL IM PRN (22:05)
[2021-08-25] MEDS ORDERED: LORazepam 2 MG/ML INJ IM PRN (22:05)
[2021-08-25] MEDS ORDERED: tiZANidine 4 MG TAB PO PRN (22:06)
[2021-08-25] MEDS ORDERED: SUMAtriptan succinate 50 MG TAB PO PRN (22:06)
[2021-08-25] MEDS ORDERED: NON FORMULARY DRUG (Alendronate Sodium [Fosamax] 70 MG Tablet) PO SCH (22:15)
[2021-08-25] MEDS ORDERED: ERGOCALCIFEROL 1,250 MCG (50,000 IU) CAPSULE PO SCH (22:15)
[2021-08-25] MEDS: LORazepam 1 MG TAB PO PRN (22:35)
[2021-08-26] MEDS: CYANOCOBALAMIN 500 MCG TAB PO SCH (09:10)
[2021-08-26] MEDS: LORazepam 1 MG TAB PO PRN ×2 (09:10→19:55)
[2021-08-26] MEDS: MULTIVITAMINS, THERA 1 EACH TAB PO SCH (09:10)
[2021-08-26] MEDS: NICOTINE 14MG/24HR PATCH TRANSDERM SCH (09:11)
[2021-08-26 10:18] LABS: Basophils # (A) 0.1 k/uL (0-0.2); Basophils % (A) 1 %; Eosinophils % (A) 1 %; HCT 46.9 % (34.0-46.0); HGB 15.2 gm/dL (11.4-16.0); Lymphocytes # (A) 1.3 k/uL (1.0-4.8); Lymphocytes % (A) 21 %; MCH 30.3 pg (25.0-35.0); MCHC 32.3 g/dL (31.0-37.0); MCV 93.7 fL (80.0-100.0); Mean Platelet Volume 7.1; Monocytes # (A) 0.3 k/uL (0-1.0); Monocytes % (A) 4 %; Neutrophils # (A) 4.7 k/uL (1.3-7.7); Neutrophils % (A) 73 %; Platelet Count 338 k/uL (150-450); RDW 13.4 % (11.5-15.5); WBC 6.5 k/uL (3.8-10.6)
[2021-08-26 10:29] LABS: ALT 16 U/L (4-34); AST 22 U/L (14-36); African American GFR (CKD) 73 (>60 ml/min/1.73 sqM); Albumin 4.3 g/dL (3.5-5.0); Alkaline Phosphatase 47 U/L (38-126); Anion Gap 11 mmol/L; Blood Urea Nitrogen 15 mg/dL (7-17); Calcium 9.1 mg/dL (8.4-10.2); Carbon Dioxide 24 mmol/L (22-30); Chloride 103 mmol/L (98-107); Glucose 133 mg/dL (74-99); Non-African American GFR(CKD) 63 (>60 ml/min/1.73 sqM); Potassium 4.2 mmol/L (3.5-5.1); Sodium 138 mmol/L (137-145); Total Bilirubin 0.4 mg/dL (0.2-1.3); Total Protein 7.3 g/dL (6.3-8.2)
[2021-08-26] MEDS ORDERED: DIVALPROEX ER 500 MG TAB.ER.24H PO STA (11:47)
--- NOTE | 2021-08-26 11:51 | P.HP ---
Psychiatric H&P - . H&P Date: 08/26/21 History & Physical: Allergies Allergy/AdvReac Type Severity Reaction Status Date / Time neomycin [Neomycin] Allergy Severe Rash/Hives Verified 08/26/21 03:57 codeine AdvReac Severe Itching Verified 08/26/21 03:57 hydrocodone AdvReac Intermediate Itching Verified 08/26/21 03:57 morphine AdvReac Intermediate Itching Verified 08/26/21 03:57 Vital Signs Temp 97.7 F 08/26/21 09:53 Pulse 120 H 08/26/21 09:53 Resp 16 08/26/21 09:53 BP 125/90 08/26/21 09:53 Pulse Ox 96 08/26/21 09:53 Intake & Output 08/25/21 08/26/21 08/26/21 18:59 06:59 18:59 Weight 58.967 kg 58.967 kg 58.967 kg Laboratory Last Values WBC 6.5 k/uL (3.8-10.6) 08/26/21 09:41 RBC 5.00 m/uL (3.80-5.40) 08/26/21 09:41 Hgb 15.2 gm/dL (11.4-16.0) 08/26/21 09:41 Hct 46.9 % (34.0-46.0) H 08/26/21 09:41 MCV 93.7 fL (80.0-100.0) 08/26/21 09:41 MCH 30.3 pg (25.0-35.0) 08/26/21 09:41 MCHC 32.3 g/dL (31.0-37.0) 08/26/21 09:41 RDW 13.4 % (11.5-15.5) 08/26/21 09:41 Plt Count 338 k/uL (150-450) 08/26/21 09:41 MPV 7.1 08/26/21 09:41 Neutrophils % 73 % 08/26/21 09:41 Lymphocytes % 21 % 08/26/21 09:41 Monocytes % 4 % 08/26/21 09:41 Eosinophils % 1 % 08/26/21 09:41 Basophils % 1 % 08/26/21 09:41 Neutrophils # 4.7 k/uL (1.3-7.7) 08/26/21 09:41 Lymphocytes # 1.3 k/uL (1.0-4.8) 08/26/21 09:41 Monocytes # 0.3 k/uL (0-1.0) 08/26/21 09:41 Eosinophils # 0.0 k/uL (0-0.7) 08/26/21 09:41 Basophils # 0.1 k/uL (0-0.2) 08/26/21 09:41 Sodium 138 mmol/L (137-145) 08/26/21 09:41 Potassium 4.2 mmol/L (3.5-5.1) 08/26/21 09:41 Chloride 103 mmol/L (98-107) 08/26/21 09:41 Carbon Dioxide 24 mmol/L (22-30) 08/26/21 09:41 Anion Gap 11 mmol/L 08/26/21 09:41 BUN 15 mg/dL (7-17) 08/26/21 09:41 Creatinine 1.05 mg/dL (0.52-1.04) H 08/26/21 09:41 Est GFR (CKD-EPI)AfAm 73 (>60 ml/min/1.73 sqM) 08/26/21 09:41 Est GFR (CKD-EPI)NonAf 63 (>60 ml/min/1.73 sqM) 08/26/21 09:41 Glucose 133 mg/dL (74-99) H 08/26/21 09:41 Calcium 9.1 mg/dL (8.4-10.2) 08/26/21 09:41 Total Bilirubin 0.4 mg/dL (0.2-1.3) 08/26/21 09:41 AST 22 U/L (14-36) 08/26/21 09:41 ALT 16 U/L (4-34) 08/26/21 09:41 Alkaline Phosphatase 47 U/L (38-126) 08/26/21 09:41 Total Protein 7.3 g/dL (6.3-8.2) 08/26/21 09:41 Albumin 4.3 g/dL (3.5-5.0) 08/26/21 09:41 TSH 0.653 mIU/L (0.465-4.680) 08/26/21 09:41 Urine Opiates Screen Not Detected (NotDetected) 08/25/21 18:35 Ur Oxycodone Screen Not Detected (NotDetected) 08/25/21 18:35 Urine Methadone Screen Not Detected (NotDetected) 08/25/21 18:35 Ur Propoxyphene Screen Not Detected (NotDetected) 08/25/21 18:35 Ur Barbiturates Screen Not Detected (NotDetected) 08/25/21 18:35 U Tricyclic Antidepress Not Detected (NotDetected) 08/25/21 18:35 Ur Phencyclidine Scrn Not Detected (NotDetected) 08/25/21 18:35 Ur Amphetamines Screen Not Detected (NotDetected) 08/25/21 18:35 U Methamphetamines Scrn Not Detected (NotDetected) 08/25/21 18:35 U Benzodiazepines Scrn Not Detected (NotDetected) 08/25/21 18:35 Urine Cocaine Screen Not Detected (NotDetected) 08/25/21 18:35 U Marijuana (THC) Screen Not Detected (NotDetected) 08/25/21 18:35 Coronavirus (PCR) Not Detected (Not Detectd) 08/25/21 20:29 08/26/21 11:37 Initial evaluation History of present illness Dominga is a 50-year-old female who states that 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 to function anymore She says that her life is not worth anything at this time and that she just wants to She admits that she feels hopeless and helpless and feeling overwhelmed She says that she just sits there and watches TV She states that the last time she worked as a pharmacist was about 2019 She said that she currently lives alone She denies any specific stressors She said that she is also enrolled in hoarding behavior She currently feels that she sees no purpose in life and that she should be She admits that she is also experiencing racing thoughts but denies any auditory or visual hallucinations She said that she used to have issues with alcohol in the past but does not drink anymore and does not use any other drugs Past history personal and social history: The patient remains very vague about her past history and her way of coping life in general She did not give any specifics about any family history of mental illness This is that she currently is not involved in any relationship and has no contact with any of her family members She stated that she was hospitalized in 2002 but did not give any specifics She says that she hasn't used alcohol before but denies going through any treatment program or how she was able to stop it Mental status examination reveals a middle-aged female who comes across as somewhat anxious Patient is casually dressed and groomed Patient also exhibited some laundry hand and leg shaking. She describes as tremors Thought processes are goal-directed sequential Patient denies any auditory visual hallucinations although she does admits to some racing thoughts Self-esteem and confidence alone Patient's problem solving abilities impaired Formal and operational judgment and insight are poor Diagnostic impression: Bipolar disorder mixed type Alcohol use disorder unspecified by history Rule out personality disorder unspecified Plan: The patient is an appropriate candidate for inpatient psychiatric hospitalization and treatment Therapy will focus on providing supportive care and improving her coping abilities and alcohol treatment Patient also participated on the rubio activities Would recommend starting the patient on Depakote ER 500 mg a day and Abilify 5 mg q day to start with and to be titrated to response Patient was brief and the effects and side effects of the medication which she appears to understand well Approximately the stay would be 5-8 days Naresh Pearce M.D. anyone 08/26/21 11:51
[2021-08-26 19:51] LABS: Chol/HDL Ratio 3.26 Ratio; LDL Cholesterol,Calculated 122.8 mg/dL (0.0-131.0)
[2021-08-26] MEDS: cloNIDine HCL 0.1 MG TAB PO SCH (21:32)
[2021-08-26] MEDS: cloNIDine HCL 0.2 MG TAB PO SCH (21:33)
[2021-08-26] MEDS: MONTELUKAST 10 MG TAB PO SCH (21:33)
[2021-08-26] MEDS: LORATADINE 10 MG TAB PO SCH (21:33)
[2021-08-26] MEDS: hydrOXYzine pamoate 25 MG CAP PO PRN (21:34)
--- NOTE | 2021-08-26 23:59 | P.CONS ---
History of Present Illness - History of Present Illness This is a pleasant 50 years old female with past medical history of seasonal allergies, Multiple UTI's, bronchitis, Rt foot reconstructive surgery 2010. Lt inguinal hernia. Corrective Eye surgery bilateral 2006 Patient came to emergency room with signs symptoms of major depression with suicidal ideation and the planned to throw herself in front of car while moving. Patient was admitted to the mental health unit with bipolar disorder . Medical consult has been requested foe medical management. Patient was sitting in bed comfortable no distress. Moving arms and legs fr eely. Denies any specific symptoms. She denies chest pain or dyspnea. No coughing. No abdominal pain. No nausea vomiting. She has 2 bowel movements recently. No headache or weakness or numbness or blurred vision. Patient is able to eat 50-75% of her medial She denies to me smoking, alcohol or illicit drugs. She tells me that her PCP is Dr. Washington. She is hemodynamically stable except for mild tachycardia secondary to stress. Labs including CBC, BMP, liver enzymes are unremarkable. TSH normal at 0.6, hemoglobin A1c is also normal at 5.7%. Lipid profile is within the reference range. Urine drug screen is negative. galicia virus not detected. However after rounding and even the unit in A call from the bedside because the patient approach from the stating that her vision right eye diminished and she has history of retinal detachment. Therefore we placed the patient on neuro check and consulted ophthalmology. Review of Systems Review of systems CONSTITUTIONAL: No fever, no malaise, no fatigue. HEENT: No recent visual problems or hearing problems. Denied any sore throat. CARDIOVASCULAR: No orthopnea, PND, no palpitations, no syncope. PULMONARY: No shortness of breath, no cough, no hemoptysis. GASTROINTESTINAL: No diarrhea, no nausea, no vomiting, no abdominal pain. Normoactive bowel sounds. NEUROLOGICAL: No headaches, no weakness, no numbness. HEMATOLOGICAL: Denies any bleeding or petechiae. GENITOURINARY: Denies any burning micturition, frequency, or urgency. MUSCULOSKELETAL/RHEUMATOLOGICAL: Denies any joint pain, swelling, or any muscle pain. ENDOCRINE: Denies any polyuria or polydipsia. Past Medical History Past Medical History: Respiratory Disorder Additional Past Medical History / Comment(s): Yr round severe seasonal allergies. Multiple UTI's, bronchitis History of Any Multi-Drug Resistant Organisms: None Reported Past Surgical History: Appendectomy, Hernia Repair, Orthopedic Surgery Additional Past Surgical History / Comment(s): Rt foot reconstructive surgery 2010. Lt inguinal hernia. Exploratory lap. Corrective Eye surgery bilateral 2006, Past Anesthesia/Blood Transfusion Reactions: Previous Problems w/ Anesthesia, Motion Sickness, Postoperative Nausea & Vomiting (PONV) Additional Past Anesthesia/Blood Transfusion Reaction / Comm: Succinylcholine - prolonged muscle paralysis Past Psychological History: Anxiety Smoking Status: Former smoker Past Alcohol Use History: Occasional Past Drug Use History: None Reported - Past Family History Father Family Medical History: Cancer Mother Family Medical History: Asthma Medications and Allergies Home Medications Medication Instructions Recorded Confirmed Type Montelukast [Singulair] 10 mg PO HS 05/20/14 08/25/21 History cloNIDine HCL [Catapres] 0.2 mg PO HS 04/09/16 08/25/21 History Diclofenac Sodium [Voltaren] 75 mg PO BID 05/20/20 08/25/21 History Ergocalciferol [Vitamin D2] 50,000 unit PO Q7D 05/20/20 08/25/21 History RX: traZODone HCL 300 mg PO HS PRN 05/20/20 08/25/21 History tiZANidine [Zanaflex] 4 mg PO BID PRN 05/20/20 08/25/21 History Ammonium Lactate Cream [Lac-Hydrin 1 applic TOPICAL BID PRN 08/25/21 08/25/21 History 12% Cream] Cetirizine HCl [Zyrtec] 10 mg PO HS 08/25/21 08/25/21 History Cyanocobalamin (Vitamin B-12) 1,000 mcg PO DAILY 08/25/21 08/25/21 History [Vitamin B-12] Levonorg-Eth Estradiol-Eth 1 tab PO DAILY 08/25/21 08/25/21 History 0.15-0.03-0.01 Multivitamins, Thera [Multivitamin 1 tab PO DAILY 08/25/21 08/25/21 History (formulary)] RX: Alendronate Sodium [Fosamax] 70 mg PO Q7D 08/25/21 08/25/21 History RX: SUMAtriptan succinate 100 mg PO DAILY PRN 08/25/21 08/25/21 History RX: clonazePAM 0.5 mg PO BID PRN 08/25/21 08/25/21 History Vilazodone HCl [Viibryd] 40 mg PO DAILY 08/25/21 08/25/21 History cloNIDine HCL [Catapres] 0.1 mg PO HS 08/25/21 08/25/21 History metFORMIN HCL ER [Glucophage XR] 1,000 mg PO W/SUPPER 08/25/21 08/25/21 History Allergies Allergy/AdvReac Type Severity Reaction Status Date / Time neomycin [Neomycin] Allergy Severe Rash/Hives Verified 08/26/21 03:57 codeine AdvReac Severe Itching Verified 08/26/21 03:57 hydrocodone AdvReac Intermediate Itching Verified 08/26/21 03:57 morphine AdvReac Intermediate Itching Verified 08/26/21 03:57 Physical Exam Vitals: Vital Signs Temp Pulse Pulse Resp BP BP Pulse Ox 08/26/21 09:53 97.7 F 120 H 16 125/90 96 08/25/21 22:09 98.0 F 97 16 131/90 08/25/21 22:00 98.7 F 90 18 148/89 97 08/25/21 20:30 98.2 F 92 18 150/90 99 08/25/21 17:19 99.3 F 101 H 16 162/107 97 Intake and Output 08/25/21 08/26/21 08/26/21 22:59 06:59 14:59 Other: Weight 58.967 kg 58.967 kg GENERAL: The patient is alert and oriented x3, not in any acute distress. Well developed, well nourished. HEENT: Pupils are round and equally reacting to light. EOMI. No scleral icterus. No conjunctival pallor. Normocephalic, atraumatic. No pharyngeal erythema. No thyromegaly. CARDIOVASCULAR: S1 and S2 present. No murmurs, rubs, or gallops. PULMONARY: Chest is clear to auscultation, no wheezing or crackles. ABDOMEN: Soft, nontender, nondistended, normoactive bowel sounds. No palpable organomegaly. MUSCULOSKELETAL: No joint swelling or deformity. EXTREMITIES: No cyanosis, clubbing, or pedal edema. NEUROLOGICAL: Gross neurological examination did not reveal any focal deficits. SKIN: No rashes. no petechiae. Results CBC & Chem 7: 08/26/21 09:41 08/26/21 09:41 Labs: Abnormal Lab Results - Last 24 Hours (Table) 08/26/21 08/26/21 Range/Units 09:41 09:41 Hct 46.9 H (34.0-46.0) % Creatinine 1.05 H (0.52-1.04) mg/dL Glucose 133 H (74-99) mg/dL Assessment and Plan Assessment: -Bipolar and other psych problems with suicidal thoughts, management as per [facility] primary team -Patient complaining of from vision changes on the right side, conversion disorder however we need to rule out organic causes therefore we consulted ophthalmology service also with this patient on neuro check -History of multiple UTI, bronchitis and right foot reconstructive surgery in 2010, follow-up as an outpatient with PCP DVT prophylaxis, not needed for patient is mobile We recommend patient follow up with her PCP in one week after discharge, patient was instructed with same Thank you for consulting us, we will see patient on an as-needed basis. Please feel free to contact us for any further question
[2021-08-27] MEDS: CYANOCOBALAMIN 500 MCG TAB PO SCH (08:47)
[2021-08-27] MEDS: ARIPiprazole 5 MG TAB PO SCH (08:47)
[2021-08-27] MEDS: MULTIVITAMINS, THERA 1 EACH TAB PO SCH (08:47)
[2021-08-27] MEDS: NICOTINE 14MG/24HR PATCH TRANSDERM SCH (08:49)
--- NOTE | 2021-08-27 12:12 | P.PN ---
Subjective Progress Note Date: 08/27/21 Principal diagnosis: Bipolar disorder mixed type Adjustment disorder with mixed emotional features Personality disorder with borderline traits Subjective data: I still worry about my future as to how that is going to change I know I keep worrying about the Depakote causing weight gain but I realize that that should not even be an issue at this time and I need to get better I don't know what they're talking about in the groups but I'm just going along with it My mind still wanders a lot" Objective data: Patient is appropriately dressed and groomed Patient interacts fairly well Thought processes are goal-directed sequential and logical Patient is being more realistic about the effects and side effects and accommodation regarding any side effects issues with the medications if they do occur Patient is now focused on getting better Assessment: Bipolar disorder mixed type Adjustment disorder with mixed emotional features Personality disorder with borderline traits Plan: We'll continue supportive care Patient encourage appropriate participation in on the rubio activities Improve coping skills and assertiveness training as well as built-up other extracurricular activities Sergo Ramses Castellano 08/27/21 Objective - Vital Signs Vital signs: Vital Signs Temp 97.7 F 08/26/21 09:53 Pulse 120 H 08/26/21 09:53 Resp 16 08/26/21 09:53 BP 125/90 08/26/21 09:53 Pulse Ox 96 08/26/21 09:53 Intake & Output 08/26/21 08/27/21 08/27/21 18:59 06:59 18:59 Weight 58.967 kg 60.8 kg - Labs CBC & Chem 7: 08/26/21 09:41 08/26/21 09:41 Labs: Abnormal Lab Results - Last 24 Hours (Table) 08/26/21 Range/Units 09:41 HDL Cholesterol 60.70 H (40.00-60.00) mg/dL
[2021-08-27] MEDS: MONTELUKAST 10 MG TAB PO SCH (20:48)
[2021-08-27] MEDS: cloNIDine HCL 0.1 MG TAB PO SCH (20:48)
[2021-08-27] MEDS: cloNIDine HCL 0.2 MG TAB PO SCH (20:48)
[2021-08-27] MEDS: LORATADINE 10 MG TAB PO SCH (20:49)
[2021-08-28] MEDS: hydrOXYzine pamoate 25 MG CAP PO PRN (02:45)
[2021-08-28 08:17] LABS: Glucose,Whole Blood 125 mg/dL (75-99)
[2021-08-28] MEDS: ARIPiprazole 5 MG TAB PO SCH (08:49)
[2021-08-28] MEDS: CYANOCOBALAMIN 500 MCG TAB PO SCH (08:49)
[2021-08-28] MEDS: MULTIVITAMINS, THERA 1 EACH TAB PO SCH (08:50)
[2021-08-28] MEDS: metFORMIN 500 MG TAB PO SCH ×2 (08:50→17:36)
[2021-08-28] MEDS: NICOTINE 14MG/24HR PATCH TRANSDERM SCH (08:50)
[2021-08-28] MEDS ORDERED: diphenhydrAMINE 25 MG CAP PO PRN (13:43)
[2021-08-28] MEDS ORDERED: AMMONIUM LACTATE 12% CREAM 140 GM TUBE TOPICAL PRN (13:44)
[2021-08-28] MEDS: SERTRALINE 50 MG TAB PO SCH (14:00)
--- NOTE | 2021-08-28 14:27 | P.PN ---
Progress Note - Text Progress Note Date: 08/28/21 Interval History: Patient was seen wandering the hallways and was directable and agreeable to jessica paredes with magazine writer in the office. Patient claims that she has been dealing with depression and severe anxiety while at home. 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 She states that she has not been able to work and has been accumulating debt and not being able to pay for her house. She states that she is feeling very overwhelmed prior to coming in the hospital and was having suicidal thoughts. She claims that she is still feeling depressed and anxious and claims that she's been sleeping poorly at nighttime. She claims that she has been hoarding tissue paper at home. She claims that she has been mainly isolating on the unit. At this time patient denies any suicidal or homical ideations, intent or plan. Patient denies any auditory, visual hallucinations and denies any paranoia or delusions. Patient denies any side effects from the medications and has been compliant with meds. Mental Status Exam: General Appearance: Patient appears to be thin, stated age is alert, directable, and attempts to be cooperative. Appears to be anxious Behavior: Patient is calmly seated without any agitated behavior. Timid Speech: Patient's speech is fluent and nonpressured. [place] Mood/Affect: Mood is depressed and anxious, affect is congruent Suicidality/Homicidality: Patient denies having any suicidal or homicidal ideation intent or plan. Perceptions: Patient denies any visual hallucinations and denies any auditory hallucinations Though content/process: There is no evidence of any delusional thought content and thought process is linear and goal-directed. Focused on her anxiety and depression. Memory and concentration: AOX3, grossly intact for the purposes of this session Judgment and insight: Poor Improving mildly Assessment Major depressive disorder, recurrent, severe without psychotic features Generalized anxiety disorder Hoarding disorder Plan: -Patient continues to meet criteria for inpatient psychiatric admission for symptom stabilization and safety. Patient has signed adult voluntary form and medication consent and was placed in patient's chart. -Medications: Zoloft 50 mg daily for mood/anxiety, Remeron 15 mg daily at bedtime for insomnia/mood/appetite. Vistaril when necessary for anxiety. Benadryl when necessary for insomnia -When necessary Ativan and Haldol for agitation/aggression. -NRT - not needed as patient does not smoke -SW on board for discharge planning. Encouraged the patient to participate in milieu.
[2021-08-28] MEDS ORDERED: MIRTAZAPINE 15 MG TAB PO SCH (21:00)
[2021-08-28] MEDS: LORATADINE 10 MG TAB PO SCH (21:29)
[2021-08-28] MEDS: MONTELUKAST 10 MG TAB PO SCH (21:29)
[2021-08-28] MEDS: cloNIDine HCL 0.1 MG TAB PO SCH (21:29)
[2021-08-28] MEDS: cloNIDine HCL 0.2 MG TAB PO SCH (21:29)
[2021-08-29 01:24] LABS: Glucose,Whole Blood 127 mg/dL (75-99)
--- NOTE | 2021-08-29 01:58 | P.EN ---
A- team: Indication: Near syncope Arrived on Scene to find: The patient laying in stretcher. The case was discussed with the RN. The patient states that she had come to the medication window to obtain a PRN benadryl to help her sleep when she began feeling lightheaded. She proceeded to sit down on the floor and continued feeling lightheaded along with mild chest discomfort, dry mouth, and tingling of her fingers. Patient reports that her symptoms resolved within a few minutes of her laying down on the stretcher. At time of interview, the patient reported feeling essentially back to her baseline. She reports a history of such episodes, last one occurring a few months ago, and notes that the was never worked up for it. Upon initial complaint of dizziness, the patient's BP was 7/70 with pulse of 95. Upon sitting on the floor next to the medication window, repeat vitals revealed a BP of 90/61 with pulse of 54. Subsequently orthostatic vital signs were obtained once patient was in the stretcher with supine vitals 121/80, pulse 61, and seated 99/74 with pulse of 72, with standing 99/72 with pulse of 76. The patient reported that she has not been drinking enough water and she feels very dehydrated and asked for water at the time of interview. The patient's medications were reviewed and she stated no new medications tonight except for Remeron. Vital signs reviewed Patient seen and examined at bedside. General: [non toxic], [no distress], [appears at stated age] Derm: [warm], [dry] Head: [atraumatic], [normocephalic], [symmetric] Eyes: [EOMI], [no lid lag], [anicteric sclera] Mouth: [no lip lesion], [mucus membranes dry Cardiovascular: [S1S2 reg], [no murmur], [positive posterior tibial pulse bilateral], Lungs: [CTA bilateral], [no rhonchi, no rales] , [no accessory muscle use] Abdominal: [soft], [ nontender to palpation], [no guarding], [no appreciable organomegaly] Ext: [no gross muscle atrophy], [no edema], [no contractures] Neuro: [ CN II-XI grossly intact], [no focal neuro deficits] Psych: [Alert], [oriented], [appropriate affect] Assessment: Near syncope, possibly orthostatic and vasovagal with drop of pulse during the initial symptom onset with subsequent drop in blood pressure on orthostatic vitals Plan: 2 L of normal saline IV bolus were recommended Fall precautions Advised patient to be very careful when standing up from a seated position or standing for prolonged periods of time Disposition: Continue with mental health unit for now A Total of 35 minutes of critical care time was spent on the complex care of this patient.
[2021-08-29 07:50] LABS: Glucose,Whole Blood 118 mg/dL (75-99)
[2021-08-29] MEDS: SERTRALINE 50 MG TAB PO SCH (08:27)
[2021-08-29] MEDS: MULTIVITAMINS, THERA 1 EACH TAB PO SCH (08:27)
[2021-08-29] MEDS: metFORMIN 500 MG TAB PO SCH ×2 (08:28→17:11)
[2021-08-29] MEDS: CYANOCOBALAMIN 500 MCG TAB PO SCH (08:28)
[2021-08-29] MEDS ORDERED: LEVONORGESTREL PO SCH (09:00)
[2021-08-29] MEDS ORDERED: [UNRECOGNIZED DRUG - OTHER] PO SCH (09:00)
[2021-08-29] MEDS ORDERED: ETHINYL ESTRADIOL PO SCH (09:00)
--- NOTE | 2021-08-29 09:55 | P.PN ---
Progress Note - Text Progress Note Date: 08/29/21 Interval History: Patient was seen wandering the hallways and was directable and agreeable to jessica paredes with commercial loan underwriter in the office. She claims that group was canceled today. 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 She asked several questions about her medications and spoke more about her medication history. She states that she was put on Anafranil in the past for trichotillomania. She states that she did not sleep well last night and was hypotensive due to the clonidine. She claims that she only slept "a few" hours however claims that she is still feeling very anxious at night and was worried about her nightmares. At this time patient denies any suicidal or homical ideations, intent or plan. Patient denies any auditory, visual hallucinations and denies any paranoia or delusions. Patient denies any side effects from the medications and has been compliant with meds. Mental Status Exam: General Appearance: Patient appears to be thin, stated age is alert, directable, and attempts to be cooperative. Appears to be anxious Behavior: Patient is calmly seated without any agitated behavior. Timid Speech: Patient's speech is fluent and nonpressured. [place] Mood/Affect: Mood is depressed and anxious, affect is congruent Suicidality/Homicidality: Patient denies having any suicidal or homicidal ideation intent or plan. Perceptions: Patient denies any visual hallucinations and denies any auditory hallucinations Though content/process: There is no evidence of any delusional thought content and thought process is linear and goal-directed. Focused on her anxiety and depression. Memory and concentration: AOX3, grossly intact for the purposes of this session Judgment and insight: Poor Improving mildly Assessment Major depressive disorder, recurrent, severe without psychotic features Generalized anxiety disorder Hoarding disorder Plan: -Patient continues to meet criteria for inpatient psychiatric admission for symptom stabilization and safety. Patient has signed adult voluntary form and medication consent and was placed in patient's chart. -Medications: increase Zoloft 100 mg daily for mood/anxiety, increase Remeron 30 mg daily at bedtime for insomnia/mood/appetite. Vistaril when necessary for anxiety. Benadryl when necessary for insomnia. consider adding zyprexa vs. seroquel if patient sleep and anxiety are still fairly poor at night. -When necessary Ativan and Haldol for agitation/aggression. -NRT - not needed as patient does not smoke -SW on board for discharge planning. Encouraged the patient to participate in milieu.
[2021-08-29 12:50] LABS: Glucose,Whole Blood 101 mg/dL (75-99)
[2021-08-29 13:33] VITALS: BMI 20.3
[2021-08-29] MEDS: LEVONORGESTREL PO SCH (17:10)
[2021-08-29] MEDS: [UNRECOGNIZED DRUG - OTHER] PO SCH (17:10)
[2021-08-29] MEDS: ETHINYL ESTRADIOL PO SCH (17:10)
[2021-08-29] MEDS: MONTELUKAST 10 MG TAB PO SCH (20:34)
[2021-08-29] MEDS: cloNIDine HCL 0.1 MG TAB PO SCH (20:34)
[2021-08-29] MEDS: LORATADINE 10 MG TAB PO SCH (20:35)
[2021-08-29] MEDS ORDERED: MIRTAZAPINE 15 MG TAB PO SCH (21:00)
[2021-08-29] MEDS: valACYclovir 500 MG TAB PO SCH (22:21)
[2021-08-30] MEDS: LORazepam 1 MG TAB PO PRN (01:25)
[2021-08-30 01:27] VITALS: RESP 16
[2021-08-30] MEDS: MULTIVITAMINS, THERA 1 EACH TAB PO SCH (08:46)
[2021-08-30] MEDS: SERTRALINE 100 MG TAB PO SCH (08:46)
[2021-08-30] MEDS: ETHINYL ESTRADIOL PO SCH (08:46)
[2021-08-30] MEDS: LEVONORGESTREL PO SCH (08:46)
[2021-08-30] MEDS: [UNRECOGNIZED DRUG - OTHER] PO SCH (08:46)
[2021-08-30] MEDS: metFORMIN 500 MG TAB PO SCH ×2 (08:46→18:41)
[2021-08-30] MEDS: CYANOCOBALAMIN 500 MCG TAB PO SCH (08:46)
[2021-08-30] MEDS: valACYclovir 500 MG TAB PO SCH ×2 (08:47→20:53)
[2021-08-30] MEDS ORDERED: OLANZapine 5 MG TAB PO ONE (12:45)
[2021-08-30 13:32] VITALS: BP 134/101; PULSE 121; TEMP 97.9
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
[2021-08-30] MEDS: OLANZapine 5 MG TAB PO SCH ×2 (17:18→20:52)
[2021-08-30] MEDS: cloNIDine HCL 0.1 MG TAB PO SCH (20:51)
[2021-08-30] MEDS: MONTELUKAST 10 MG TAB PO SCH (20:51)
[2021-08-30] MEDS: LORATADINE 10 MG TAB PO SCH (20:52)
[2021-08-30] MEDS ORDERED: MIRTAZAPINE 15 MG TAB PO SCH (21:00)
[2021-08-30] MEDS ORDERED: IMIPRAMINE 10 MG TAB PO SCH (21:00)
[2021-08-31 07:56] LABS: Glucose,Whole Blood 99 mg/dL (75-99)
[2021-08-31] MEDS: ETHINYL ESTRADIOL PO SCH (08:27)
[2021-08-31] MEDS: valACYclovir 500 MG TAB PO SCH (08:27)
[2021-08-31] MEDS: [UNRECOGNIZED DRUG - OTHER] PO SCH (08:27)
[2021-08-31] MEDS: LEVONORGESTREL PO SCH (08:27)
[2021-08-31] MEDS: MULTIVITAMINS, THERA 1 EACH TAB PO SCH (08:27)
[2021-08-31] MEDS: SERTRALINE 100 MG TAB PO SCH (08:28)
[2021-08-31] MEDS: OLANZapine 5 MG TAB PO SCH (08:28)
[2021-08-31] MEDS: metFORMIN 500 MG TAB PO SCH (08:28)
[2021-08-31] MEDS: CYANOCOBALAMIN 500 MCG TAB PO SCH (08:28)
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
== END 2021-08-31 14:58 | disposition home or self-care (01) | DRG 885 ==
LOC: EC 15:22 → 3MHU 21:38
PROVIDERS: ADMIT Psychiatry & Neurology Psychiatry; ATTEND Psychiatry & Neurology Psychiatry
DX: F31.4 Bipolar disorder, current episode depressed, severe, without psychotic features (principal); R45.851 Suicidal ideations; F13.239 Sedative, hypnotic or anxiolytic dependence with withdrawal, unspecified; I95.9 Hypotension, unspecified; F60.3 Borderline personality disorder; Z20.822 Contact with and (suspected) exposure to COVID-19; F10.10 Alcohol abuse, uncomplicated; F43.23 Adjustment disorder with mixed anxiety and depressed mood; F41.1 Generalized anxiety disorder; F42.3 Hoarding disorder; F63.3 Trichotillomania; F44.9 Dissociative and conversion disorder, unspecified; R73.03 Prediabetes; J30.2 Other seasonal allergic rhinitis; Z79.83 Long term (current) use of bisphosphonates; Z79.84 Long term (current) use of oral hypoglycemic drugs; Z79.899 Other long term (current) drug therapy; Z87.891 Personal history of nicotine dependence; Z87.440 Personal history of urinary (tract) infections; Z90.49 Acquired absence of other specified parts of digestive tract; Z87.19 Personal history of other diseases of the digestive system; Z86.69 Personal history of other diseases of the nervous system and sense organs; Z87.39 Personal history of other diseases of the musculoskeletal system and connective tissue; Z98.890 Other specified postprocedural states; Z88.3 Allergy status to other anti-infective agents; Z71.89 Other specified counseling; Z88.5 Allergy status to narcotic agent; Z82.5 Family history of asthma and other chronic lower respiratory diseases; Z80.9 Family history of malignant neoplasm, unspecified
CPT/HCPCS: 80053; 80061; 80306; 82075; 83036; 84443; 85025; 87635; 99285

== ENCOUNTER → 2022-09-18 | Outpatient (CLI) | payer OTHER ==
--- NOTE | 2022-09-19 10:55 | MM ---
Reason for Exam: Screening (asymptomatic). Last mammogram was performed 3 year(s) and 6 month(s) ago. Patient History: Menarche at age 14. Patient has no children. Hormonal Contraceptives, from age 18 until age 50. Risk Values: Naomie 5 year model risk: 1.0%. NCI Lifetime model risk: 10.0%. Prior Study Comparison: 02/18/2014 Bilateral Screening Mammogram, [facility]. 03/09/2016 Bilateral Screening Mammogram, [facility]. 03/26/2019 Bilateral Screening Mammogram, [facility]. Tissue Density: The breast tissue is heterogeneously dense. This may lower the sensitivity of mammography. Findings: Analyzed By CAD. Pattern appears symmetrical and stable. No significant interval change. No suspicious groups of microcalcifications, spiculated or lobular masses, architectural distortion or other secondary signs of malignancy are mammographically apparent. Overall Assessment: Benign, BI-RAD 2 Management: Screening Mammogram of both breasts in 1 year. A negative mammogram report should not preclude additional follow up of suspicious palpable abnormalities. Patient should continue monthly self breast exam. A clinical breast exam by your physician is recommended on an annual basis and results should be correlated with mammographic findings. Electronically signed and approved by: Jonh Munroe D.O. Radiologis
== END | disposition home or self-care (01) ==
LOC: RADMAMWWP 15:32
PROVIDERS: ATTEND Family Medicine
DX: Z12.31 Encounter for screening mammogram for malignant neoplasm of breast (principal)
CPT/HCPCS: 77063; 77067

== ENCOUNTER 2022-11-20 09:03 | Day surgery (SDC) | payer OTHER ==
[2022-11-15 08:47] VITALS: BMI 24.9
[~2022-11-20 09:03] MED LIST: LACTATED RINGERS 1,000 ML IV SCH; LIDOCAINE 1% (10MG/ML) FOR IV START INTRADERMA PRN
[2022-11-20 09:28] VITALS: RESP 16; TEMP 97.8
[2022-11-20] MEDS ORDERED: PROPOFOL 10 MG/ML 20 ML VIAL IV ONE (10:20)
--- NOTE | 2022-11-20 10:38 | P.PCN ---
Date of Procedure: 11/20/22 Procedure(s) Performed: BRIEF HISTORY: Patient is a 51-year-old pleasant white female scheduled for an elective colonoscopy as a part of screening for colon cancer. PROCEDURE PERFORMED: Colonoscopy. PREOPERATIVE DIAGNOSIS: Screening for colon cancer. IV sedation per Anesthesia. PROCEDURE: After informed consent was obtained, the patient, was brought into the endoscopy unit. IV sedation was administered by Anesthesia under continuous monitoring. Digital rectal examination was normal. Initially the Olympus CF-160 flexible video colonoscope was then inserted in the rectum, gradually advanced into the cecum without any difficulty. Careful examination was performed as the scope was gradually being withdrawn. Ileocecal valve and the appendiceal orifice were visualized and appeared normal. Prep was excellent. Mucosa of the cecum, ascending colon, transverse colon, descending colon, sigmoid colon, and rectum appeared normal. Retroflexion was performed in the rectum and no lesions were seen. The patient tolerated the procedure well. IMPRESSION: Normal-appearing colon from rectum to cecum with no evidence of colorectal neoplasia. RECOMMENDATIONS: Findings of this examination were discussed with the patient as well as her family. She was advised to have a repeat screening colonoscopy in 10 years..
[2022-11-20 10:59] VITALS: BP 119/90; PULSE 72
== END 2022-11-20 11:12 | disposition home or self-care (01) ==
LOC: ORWHC2ENDO 09:03
PROVIDERS: ATTEND Internal Medicine Gastroenterology
DX: Z12.11 Encounter for screening for malignant neoplasm of colon (principal); K58.9 Irritable bowel syndrome, unspecified; Z88.8 Allergy status to other drugs, medicaments and biological substances
CPT/HCPCS: 45378; J2704

== ENCOUNTER → 2023-12-17 | Outpatient (CLI) | payer OTHER ==
--- NOTE | 2023-12-17 18:54 | US ---
EXAMINATION TYPE: US abdomen complete DATE OF EXAM: 12/17/2023 COMPARISON: 04/15/2014, CT 05/20/2020. CLINICAL INDICATION: Female, 52 years old with history of R10.9 UNSPECIFIED ABDOMINAL PAIN; Right fla nk pain x 3 months, exploratory laparoscopy, appy, and left ingunal hernia surgery TECHNIQUE: Multiple sonographic images of the abdomen are obtained. FINDINGS: EXAM MEASUREMENTS: Liver Length: 10.6 cm Gallbladder Wall: 0.1 cm CBD: 0.3 cm Spleen: 9.7 cm Right Kidney: 10.6 x 3.7 x 5.4 cm Left Kidney: 9.2 x 5.4 x 3.9 cm FLIGHT CONTROL TOWER OPERATOR NOTES: Pancreas: wnl Liver: Hyperechoic area supoerolateral right liver = 2.2 x 2.3 x 2.1 cm Gallbladder: wnl Evidence for sonographic Rivera's sign: No CBD: wnl Spleen: wnl Right Kidney: wnl Left Kidney: wnl Upper IVC: wnl Abd Aorta: wnl The liver is homogenous with hyperechoic lesion as described above.. The intrahepatic portion of the IVC and proximal abdominal aorta are within normal limits. There is no evidence of cholelithiasis. Common bile duct is unremarkable. The visualized portions of the pancreas are homogenous. The sple en is unremarkable. Kidneys are symmetric and free of hydronephrosis. No renal lesions are seen. IMPRESSION: 1. No evidence for acute process. 2. Hyperechoic lesion in the right liver measuring up to 2.3 cm most suggestive of a hepatic hemangi miguel. This can be confirmed with MRI liver mass protocol.
--- NOTE | 2023-12-17 19:15 | US ---
EXAMINATION TYPE: US pelvic complete DATE OF EXAM: 12/17/2023 COMPARISON: 03/15/2021 CLINICAL INDICATION: Female, 52 years old with history of R10.9 ABD PAIN; On estrogen patch and oral progesterone, multiple precancerous pap smear, on control x 30 years, G0 TECHNIQUE: . Transabdominal sonographic images of the pelvis were acquired. Transvaginal sonographi c images were medically necessary to better assess the following anatomy: ovaries Date of LMP: about 2 years ago EXAM MEASUREMENTS: Uterus: 6.4 x 3.8 x 3.7 cm Endometrial Stripe: 0.3 cm Right Ovary: obscured by bowel cm Left Ovary: obscured by bowel cm 1. Uterus: Anteverted wnl 2. Endometrium: wnl 3. Right Ovary: Obscured by overlying bowel gas 4. Left Ovary: Obscured by overlying bowel gas 5. Bilateral Adnexa: Obscured by overlying bowel gas 6. Posterior cul-de-sac: wnl IMPRESSION: 1. No evidence for acute process. 2. Endometrium within normal limits for thickness. 3. Nonvisualization of the ovaries due to bowel gas.
== END | disposition home or self-care (01) ==
LOC: RADUSWWP 14:55
PROVIDERS: ATTEND Family Medicine
DX: K76.89 Other specified diseases of liver (principal); R10.9 Unspecified abdominal pain; Z98.890 Other specified postprocedural states
CPT/HCPCS: 76700; 76830; 76856

== ENCOUNTER → 2024-02-04 | Outpatient (CLI) | payer OTHER ==
--- NOTE | 2024-02-08 10:18 | MR ---
EXAMINATION TYPE: MR liver wo/w con DATE OF EXAM: 02/04/2024 10:19 PM CLINICAL INDICATION:Female, 53 years old with history of K76.9 LIVER DISEASE, UNSPECIFIED; PHH, Liver disease COMPARISON: CT scan abdomen from 05/20/2020., Ultrasound 12/17/2023 TECHNIQUE: Multiplanar multi-sequence imaging was performed without contrast. Post contrast imaging was performed. Post IV contrast subtraction images were also submitted for review. IV Contrast: 7 cc Gadavist FINDINGS: LOWER CHEST: No gross irregularity. ABDOMEN Liver: No evidence for hepatic steatosis or cirrhosis. To high T2 signal observations the largest dell suring 18 mm and smaller measuring 7 mm. These demonstrate peripheral nodular discontinuous enhanceme nt which progresses on delayed imaging. Smaller lesion in the dome also demonstrates this enhancement pattern. Lastly, dropout of signal on chemical shift in phase imaging. Gallbladder and Bile ducts: No evidence for ductal dilation, or biliary stricture or evidence of chol edocholithiasis. The gallbladder is within normal limits. Pancreas: No ductal dilation. No evidence for solid mass. Spleen: Normal for size. Adrenal glands: Unremarkable. Kidneys: No evidence for obstructive uropathy. No suspicious renal masses. Stomach and Bowel: No evidence for bowel wall thickening or evidence for obstruction. Retroperitoneum/Peritoneum: No evidence of pneumoperitoneum or free fluid. Vasculature: No aortic aneurysm. Musculoskeletal: The osseous structures appear intact. Lymph Nodes: No gross evidence for lymphadenopathy. Abdominal wall: Fat-containing umbilical hernia. IMPRESSION: 1. There are 2 liver observations which have enhancement patterns compatible with benign hepatic hem angioma 2. Iron Deposition within the liver
== END | disposition home or self-care (01) ==
LOC: RADMRIMAIN 20:00
PROVIDERS: ATTEND Family Medicine
DX: K76.9 Liver disease, unspecified (principal)
CPT/HCPCS: 74183; A9585